=== PATIENT | female | born 1990 | race American Indian/Alaskan Native ===

== ENCOUNTER 2017-12-14 11:02 | Emergency (ER) | payer BC ==
[2017-12-14 11:21] VITALS: BMI 29.2
[2017-12-14 11:58] LABS: BASO % 0.8 % (0.0-2.0); EOS # 0.1 K/uL (0.0-0.7); EOS % 1.7 % (0.0-4.0); HEMOGLOBIN 11.5 g/dL (11.0-16.0); LYMPH # 1.3 K/uL (1.0-4.3); LYMPH % 24.3 % (20.0-40.0); MEAN CELL VOLUME 95.8 fL (81.0-99.0); MEAN CORPUSCULAR HEMOGLOBIN 33.3 pg (27.0-31.0); MEAN CORPUSCULAR HGB CONC 34.7 g/dL (33.0-37.0); MEAN PLATELET VOLUME 10.1 fL (7.2-11.7); MONO # 0.5 K/uL (0.0-0.8); MONO % 10.1 % (0.0-10.0); NEUT # 3.3 K/uL (1.8-7.0); NEUT % 63.1 % (50.0-75.0); RBC 3.46 Mil/uL (3.80-5.20); RED CELL DISTRIBUTION WIDTH 11.6 % (11.5-14.5); WHITE BLOOD COUNT 5.3 K/uL (4.8-10.8)
[2017-12-14 12:04] LABS: HCG,QUALITATIVE URINE POSITIVE (NEGATIVE)
[2017-12-14 12:12] LABS: ALB/GLOB RATIO 1.7 (1.0-2.1); ALBUMIN 4.8 g/dL (3.5-5.0); ALT/SGPT 23 U/L (9-52); AST/SGOT 17 U/L (14-36); BLOOD UREA NITROGEN 9 mg/dL (7-17); GFR AFRICAN-AMERICAN > 60; GFR NON-AFRICAN AMERICAN > 60
[2017-12-14 12:26] LABS: SQUAMOUS EPITHIAL 13 /hpf (0-5); URINE BACTERIA RARE (<OCC); URINE BILIRUBIN NEGATIVE (NEGATIVE); URINE BLOOD 3+ (NEGATIVE); URINE CLARITY Hazy (Clear); URINE COLOR Yellow (YELLOW); URINE GLUCOSE (UA) NORMAL (Normal); URINE LEUKOCYTE ESTERASE NEG Leu/uL (Negative); URINE PROTEIN NEGATIVE (NEGATIVE); URINE UROBILINOGEN NORMAL mg/dL (0.2-1.0)
--- NOTE | 2017-12-14 12:44 | US ---
PROCEDURE: OB Pelvic Ultrasound HISTORY: preg bleeding LMP: 10/18/2017 COMPARISON: None available. FINDINGS: UTERUS: Gestational sac: Single intrauterine gestation. Measures 1.1 cm compatible with estimated gestational age of 5 weeks, 1 day. Yolk sac: Not identified. pole: Not identified. Queenie-gestational hemorrhage: None. Date of delivery (Ultrasound estimated) : Uterus measures 8.3 x 5.0 x 6.0 cm. Normal in size and appearance. CERVIX: Measures 2.4 cm. Long and closed. No cervical abnormality seen. RIGHT OVARY: Measures 3.6 x 2.4 x 3.7 cm. No mass lesion. Normal flow. LEFT OVARY: Measures 3.3 x 2.1 x 2.6 cm. No solid mass. Normal flow. FREE FLUID: None. OTHER FINDINGS: None. IMPRESSION: Single intrauterine gestational sac without yolk sac or pole identified. Findings may represent early normal/ abnormal . Close clinical follow-up with serial pelvic sonography and serum beta HCG levels is recommended.
--- NOTE | 2017-12-14 13:15 | C.PDOC ---
History Of Present Illness 27 year old female who is 5 wks (), presents to the ED for evaluation of vaginal bleeding which began earlier today. Patient states her LMP was during the last week of September and found out she was at the beginning of this month. She has an appointment with her HOOP BENDING MACHINE OPERATOR tomorrow. Patient reports some nausea and urinary frequency and denies fever, back pain, hematuria, vaginal discharge, vomiting, dysuria. Time Seen by Provider: 12/14/17 11:23 Chief Complaint (Nursing): Female Genitourinary History Per: Patient History/Exam Limitations: no limitations Current Symptoms Are (Timing): Still Present Quality Of Discomfort: "Pain" Associated Symptoms: Nausea, Urinary Symptoms (urinary frequency ). denies: Fever, Chills, Vomiting Additional History Per: Patient Abnormal Vaginal Bleeding: Yes : 4 Para: 0 Past Medical History Reviewed: Historical Data, Nursing Documentation, Vital Signs Vital Signs: Last Vital Signs Temp 98.2 F 12/14/17 13:57 Pulse 62 12/14/17 13:57 Resp 16 12/14/17 13:57 BP 100/67 12/14/17 13:57 Pulse Ox 99 12/14/17 13:57 - Medical History PMH: No Chronic Diseases Surgical History: No Surg Hx Family History: States: Unknown Family Hx - Social History Hx Tobacco Use: No Hx Alcohol Use: Yes Hx Substance Use: No - Immunization History Hx Tetanus Toxoid Vaccination: No Hx Influenza Vaccination: No Hx Pneumococcal Vaccination: No Review Of Systems Constitutional: Negative for: Fever, Chills Gastrointestinal: Positive for: Nausea. Negative for: Vomiting Genitourinary: Positive for: Frequency, Vaginal Bleeding Physical Exam - Physical Exam Appears: Non-toxic, No Acute Distress Skin: Normal Color, Warm, Dry Head: Atraumatic, Normacephalic Eye(s): bilateral: Normal Inspection, EOMI Nose: Normal Oral Mucosa: Moist Neck: Supple Chest: Symmetrical, No Deformity, No Tenderness Cardiovascular: Rhythm Regular Respiratory: Normal Breath Sounds, No Rales, No Rhonchi, No Wheezing Gastrointestinal/Abdominal: Soft, No Tenderness, No Guarding, No Rebound Back: No CVA Tenderness, No Vertebral Tenderness Extremity: Normal ROM, Capillary Refill Neurological/Psych: Oriented x3, Normal Speech, Normal Cognition Gait: Steady ED Course And Treatment - Laboratory Results Result Diagrams: 12/14/17 11:51 12/14/17 11:51 O2 Sat by Pulse Oximetry: 100 (on RA) Pulse Ox Interpretation: Normal - CT Scan/US Pelvic US Other Rad Studies (CT/US): Read By Radiologist, Radiology Report Reviewed CT/US Interpretation: Accession No. : [id number]. Patient Name / ID : MEENAKSHI GR / [id number]. Exam Date : 12/14/2017 12:06:54 ( Approved ). Study Comment : Sex / Age : F / 27Y. Creator : Patel Torres MD. Dictator : Patel Torres MD. Survey Research Center Director : Automotive Salesperson : Patel Torres MD. Approver2 : Report Date : 12/14/2017 12:43:25. My Comment : . PROCEDURE: OB Pelvic Ultrasound. HISTORY: preg bleeding. LMP: 10/18/2017. COMPARISON : None available. FINDINGS: UTERUS: Gestational sac: Single intrauterine gestation. Measures 1.1 cm compatible with estimated gestational age of 5 weeks , 1 day. Yolk sac: Not identified. pole: Not identified. Queenie- gestational hemorrhage: None. Date of delivery (Ultrasound estimated) : Uterus measures 8.3 x 5.0 x 6.0 cm. Normal in size and appearance. CERVIX: Measures 2.4 cm. Long and closed. No cervical abnormality seen. RIGHT OVARY: Measures 3.6 x 2.4 x 3.7 cm. No mass lesion. Normal flow. LEFT OVARY: Measures 3.3 x 2.1 x 2.6 cm. No solid mass. Normal flow. FREE FLUID: None. OTHER FINDINGS: None. IMPRESSION: Single intrauterine gestational sac without yolk sac or pole identified. Findings may represent early normal / abnormal . Close clinical follow-up with serial pelvic sonography and serum beta HCG levels is recommended. Progress Note: Bloodwork, urinalysis, Pelvic US ordered and reviewed. Pt was informed of the results and copies given. Instructed to f/u with OB tomorrow as scheduled. Pt verbalizes understanding. Disposition - Disposition Disposition: HOME/ ROUTINE Disposition Time: 13:18 Condition: STABLE Additional Instructions: Follow up with your OB/ER in 2-3 days for repeat evaluation. Your Beta HCG today is 12,000. Instructions: Threatened Miscarriage (DC) Forms: [employer] (Hebrew) - Clinical Impression Clinical Impression: First trimester - PA / KNIFER UP / Resident Statement MD/DO has reviewed & agrees with the documentation as recorded. - Scribe Statement The provider has reviewed the documentation as recorded by the Scribe (Sury Gonsalez) All medical record entries made by the Scribe were at my direction and personally dictated by me. I have reviewed the chart and agree that the record accurately reflects my personal performance of the history, physical exam, medical decision making, and the department course for this patient. I have also personally directed, reviewed, and agree with the discharge instructions and disposition.
[2017-12-14 13:58] VITALS: BP 100/67; PULSE 62; RESP 16; TEMP 98.2
[2017-12-14 16:44] VITALS: O2SAT 100
== END 2017-12-14 13:57 | disposition home or self-care (01) ==
LOC: C.ER 11:02
DX: O26.891 Other specified pregnancy related conditions, first trimester (principal); Z3A.01 Less than 8 weeks gestation of pregnancy

== ENCOUNTER 2018-01-05 00:54 | Emergency (ER) | payer BC ==
[2018-01-05 00:55] VITALS: BMI 29.2
[2018-01-05 01:07] VITALS: RESP 18; TEMP 98.7
[2018-01-05 02:04] LABS: SQUAMOUS EPITHIAL 6 /hpf (0-5); URINE BILIRUBIN NEGATIVE (NEGATIVE); URINE BLOOD 3+ (NEGATIVE); URINE CLARITY Hazy (Clear); URINE COLOR Yellow (YELLOW); URINE GLUCOSE (UA) NORMAL (Normal); URINE HYALINE CAST 0-2 /lpf (0-2); URINE LEUKOCYTE ESTERASE NEG Leu/uL (Negative); URINE PROTEIN 1+ mg/dL (NEGATIVE); URINE UROBILINOGEN NORMAL mg/dL (0.2-1.0)
[2018-01-05 02:05] LABS: BASO % 0.5 % (0.0-2.0); EOS # 0.1 K/uL (0.0-0.7); EOS % 1.3 % (0.0-4.0); LYMPH % 30.2 % (20.0-40.0); MEAN CELL VOLUME 95.2 fL (81.0-99.0); MEAN CORPUSCULAR HEMOGLOBIN 33.3 pg (27.0-31.0); MONO # 0.6 K/uL (0.0-0.8); NEUT # 3.9 K/uL (1.8-7.0); RBC 3.61 Mil/uL (3.80-5.20); RED CELL DISTRIBUTION WIDTH 11.7 % (11.5-14.5); WHITE BLOOD COUNT 6.6 K/uL (4.8-10.8)
--- NOTE | 2018-01-05 02:25 | C.PDOC ---
History Of Present Illness 27 year old female 11 weeks by date presents to the ED c/o vaginal bleeding that started at 23:00 last night. Patient noticed today some clots as well. Patient is also c/o minimal lower back discomfort. Patient denies fever, chills, nausea, vomit, diarrhea, dyruria, hemturia. Pt was seen on 12/14 with similar c/o. Pt is with TOPx 3 Time Seen by Provider: 01/05/18 01:14 Chief Complaint (Nursing): Female Genitourinary History Per: Patient History/Exam Limitations: no limitations Onset/Duration Of Symptoms: Days Current Symptoms Are (Timing): Still Present Quality Of Discomfort: "Pain" Associated Symptoms: Back Pain. denies: Nausea, Vomiting, Diarrhea Alleviating Factors: None Recent travel outside of the [place]: No Additional History Per: Patient Abnormal Vaginal Bleeding: Yes Past Medical History Reviewed: Historical Data, Nursing Documentation, Vital Signs Vital Signs: Last Vital Signs Temp 98.7 F 01/05/18 01:02 Pulse 77 01/05/18 01:02 Resp 18 01/05/18 01:02 BP 123/77 01/05/18 01:02 Pulse Ox 100 01/05/18 05:13 - Medical History PMH: Asthma Surgical History: No Surg Hx Family History: States: Unknown Family Hx - Social History Hx Tobacco Use: No Hx Alcohol Use: No Hx Substance Use: No - Immunization History Hx Tetanus Toxoid Vaccination: No Hx Influenza Vaccination: No Hx Pneumococcal Vaccination: No Review Of Systems Constitutional: Negative for: Fever, Chills Cardiovascular: Negative for: Chest Pain, Palpitations Respiratory: Negative for: Cough, Shortness of Breath Gastrointestinal: Negative for: Nausea, Vomiting, Abdominal Pain Genitourinary: Positive for: Vaginal Discharge, Vaginal Bleeding. Negative for : Dysuria, Hematuria Skin: Negative for: Rash Neurological: Negative for: Weakness, Numbness Physical Exam - Physical Exam Appears: Non-toxic, No Acute Distress Skin: Normal Color, Warm, Dry Head: Atraumatic, Normacephalic Eye(s): bilateral: Normal Inspection Oral Mucosa: Moist Neck: Normal ROM, Supple Chest: Symmetrical Cardiovascular: Rhythm Regular Respiratory: Normal Breath Sounds, No Rales, No Rhonchi, No Wheezing Gastrointestinal/Abdominal: Soft, No Tenderness, No Guarding, No Rebound Back: Paraspinal Tenderness Pelvic: Vaginal Bleeding (minimal), No Cervical Motion Tenderness, No Cervix Open (closed), No Mass Extremity: Normal ROM, No Tenderness, No Swelling Neurological/Psych: Oriented x3, Normal Speech Gait: Steady ED Course And Treatment - Laboratory Results Result Diagrams: 01/05/18 01:56 01/05/18 01:56 O2 Sat by Pulse Oximetry: 100 (ON RA) Pulse Ox Interpretation: Normal - CT Scan/US Pelvic US Other Rad Studies (CT/US): Read By Radiologist, Radiology Report Reviewed CT/US Interpretation: EXAM: US First Trimester, Transabdominal. US , Transvaginal. CLINICAL HISTORY: 27 years old, female; Pain; Other: Vaginal bleeding; Gestational age or lmp: 6w2d; ;. Additional info: Vaginal bleeding, . TECHNIQUE: Real-time transabdominal and transvaginal obstetrical ultrasound of the maternal pelvis and a first. trimester with image documentation. Transvaginal imaging was used for better evaluation. of the fetus and adnexa. COMPARISON: Report 12/14/2017. FINDINGS: Gestation: Gestational sac. No yolk sac. No pole. Mean sac diameter of 1.9 cm, correlating. with gestational age of 6 weeks 2 days. Uterus/cervix: No subchorionic hemorrhage. Closed cervix. Ovaries: Normal ovaries. No adnexal masses. Free fluid: No significant free fluid. IMPRESSION : 1. Findings diagnostic of failure (absence of embryo with heartbeat > or = 2 weeks after a. scan that showed a gestational sac without a yolk sac) based on prior report 12/14/2017. 2. Incidental/non-acute findings are described above. Thank you for allowing us to participate in the care of your patient. Progress Note: Plan: - Labs. - UA. - Pelvic US. Case d/w dr Knapp OB landfill gas collection system operator recommend that as sac is small as seen on US pt may be able to pass sac spontaneously and pt may return to ER if symptoms worsen. Pt remained stable , aware of ED US results and will follw up with OB and return precautions strongly reinforced. Disposition - Disposition Referrals: [facility] [Outside] [facility] [Outside] Disposition: HOME/ ROUTINE Disposition Time: 04:49 Condition: GOOD Additional Instructions: Please follow up with your OB or in clinic Return to ER if moderately heavy bleeding, severe pain, dizziness, or worse Instructions: Threatened Miscarriage (DC) Forms: Work/School/Gym Excuse, [facility] (Hong Konger) - Clinical Impression Clinical Impression: Missed - PA / REFRACTORY REPAIRER / Resident Statement MD/DO has reviewed & agrees with the documentation as recorded. - Scribe Statement The provider has reviewed the documentation as recorded by the Scribe Stu Martinez All medical record entries made by the Scribe were at my direction and personally dictated by me. I have reviewed the chart and agree that the record accurately reflects my personal performance of the history, physical exam, medical decision making, and the department course for this patient. I have also personally directed, reviewed, and agree with the discharge instructions and disposition.
[2018-01-05 02:35] LABS: ALB/GLOB RATIO 1.5 (1.0-2.1); ALBUMIN 5.1 g/dL (3.5-5.0); ALT/SGPT 23 U/L (9-52); AST/SGOT 31 U/L (14-36); BLOOD UREA NITROGEN 8 mg/dL (7-17); CALCIUM 9.6 mg/dl (8.6-10.4); GFR AFRICAN-AMERICAN > 60; GFR NON-AFRICAN AMERICAN > 60
[2018-01-05 05:18] VITALS: BP 118/72; PULSE 82
[2018-01-05 05:21] VITALS: O2SAT 100
--- NOTE | 2018-01-05 10:18 | US ---
Date of service: 01/05/2018 PROCEDURE: ultrasound HISTORY: vaginal bleeding, COMPARISON: 12/14/2017 TECHNIQUE: Standard protocol for this study/examination. FINDINGS: Gestational sac identified. Gestational sac measurement 1.86 cm corresponds to gestational age 6 weeks 2 days. This compares to the prior study 12/14/2017 at which time the gestational sac measured 1.11 cm corresponding to a gestational age of 5 weeks 1 day. No pole or yolk sac noted. Right ovary 2.1 x 3 x 4 cm. Left ovary 1.2 x 2.6 x 2.7 cm. Uterus measures 5.4 x 7.3 x 9 cm. Closed cervix 3.82 cm IMPRESSION: Evidence of intrauterine demise. Details described above. Gestational sac without yolk sac or pole. Unremarkable uterus and adnexa. Concordant results (preliminary interpretation) provided by [facility]. Procedure Completed: 02:34 Preliminary ([facility]) Report: Dictated and Authenticated: 04:28 Final Interpretation: 10:17 January 05, 2018.
== END 2018-01-05 05:18 | disposition home or self-care (01) ==
LOC: SUPCPDRO 00:54 → C.ER 00:54
DX: O02.1 Missed abortion (principal)

== ENCOUNTER 2018-01-08 14:28 | Emergency (ER) | payer BC ==
[2018-01-08 14:29] VITALS: BMI 29.2
[2018-01-08 14:36] VITALS: BP 108/67; PULSE 89; RESP 18; TEMP 98.7; O2SAT 96
--- NOTE | 2018-01-08 16:38 | US ---
PROCEDURE: OB Pelvic Ultrasound HISTORY: /MISCARRIAGE, VAGINAL BLEEDING COMPARISON: 01/05/2018 FINDINGS: UTERUS: Intrauterine gestational sac identified. Gestational sac diameter is 24 mm equivalent to 7 weeks 0 days gestational age. This has increased from prior examination of 01/05/2018 at which time the sac diameter was 19 mm. No pole identified. No yolk sac identified. Low-level echoes are identified within the gestational sac. No detectable cardiac activity. Queenie-gestational hemorrhage: None. Uterus measures 7.8 x 5.0 x 5.4 cm. No mass CERVIX: Long and closed. No cervical abnormality seen. RIGHT OVARY: Measures 3.4 x 2.1 x 2.4 cm. No mass. Normal flow. LEFT OVARY: Measures 3.0 x 1.5 x 2.3 cm. No mass. Normal flow. FREE FLUID: None. OTHER FINDINGS: None. IMPRESSION: Intrauterine gestational sac without identifiable yolk sac, pole or cardiac activity. 24 mm diameter equal to 7 weeks 0 days. Findings likely indicate demise.
--- NOTE | 2018-01-08 17:52 | C.PDOC ---
History Of Present Illness 27 y/o female presents to the ER complaining of vaginal bleeding intermittently since 12/14/17. Patient describes bleeding as the flow of a period and dark brown in color. Patient was seen here and diagnosed with a miscarriage on . She returns today due to persistent bleeding. Patient denies any chest pain , SOB, lightheadedness, abdominal pain, pelvic pain, dysuria, fever. Time Seen by Provider: 01/08/18 15:03 Chief Complaint (Nursing): Female Genitourinary History Per: Patient History/Exam Limitations: no limitations Onset/Duration Of Symptoms: Days Current Symptoms Are (Timing): Still Present Severity: Mild Abnormal Vaginal Bleeding: Yes Past Medical History Reviewed: Historical Data, Nursing Documentation, Vital Signs Vital Signs: Last Vital Signs Temp 98.7 F 01/08/18 14:32 Pulse 89 01/08/18 14:32 Resp 18 01/08/18 14:32 BP 108/67 01/08/18 14:32 Pulse Ox 96 01/08/18 19:21 - Medical History PMH: Asthma Family History: States: No Known Family Hx - Social History Hx Tobacco Use: No (former) Hx Alcohol Use: No Hx Substance Use: No - Immunization History Hx Tetanus Toxoid Vaccination: No Hx Influenza Vaccination: No Hx Pneumococcal Vaccination: No Review Of Systems Constitutional: Negative for: Fever, Chills Cardiovascular: Negative for: Chest Pain, Light Headedness Respiratory: Negative for: Shortness of Breath Gastrointestinal: Negative for: Nausea, Vomiting, Abdominal Pain Genitourinary: Positive for: Vaginal Bleeding. Negative for: Dysuria, Pelvic Pain Skin: Negative for: Rash Physical Exam - Physical Exam Appears: Well, Non-toxic, No Acute Distress Skin: Normal Color, Warm, Dry Head: Normacephalic Eye(s): bilateral: Normal Inspection Oral Mucosa: Moist Neck: Supple Cardiovascular: Rhythm Regular Respiratory: Normal Breath Sounds, No Rales, No Rhonchi, No Wheezing Gastrointestinal/Abdominal: Normal Exam, Bowel Sounds, Soft, No Tenderness Extremity: Bilateral: Atraumatic, Normal ROM Neurological/Psych: Oriented x3 ED Course And Treatment O2 Sat by Pulse Oximetry: 96 (RA) Pulse Ox Interpretation: Normal - CT Scan/US Transvaginal US Other Rad Studies (CT/US): Read By Radiologist, Radiology Report Reviewed CT/US Interpretation: Accession No. : [id number]. Patient Name / ID : MEENAKSHI GR / [id number]. Exam Date : 01/08/2018 15:49:35 ( Approved ). Study Comment : Sex / Age : F / 27Y. Creator : Arpit Moctezuma MD. Dictator : Arpit Moctezuma MD. Order Processing Manager : [employer] : Arpit Moctezuma MD. Approver2 : Report Date : 01/08/2018 16:36:49. My Comment : . PROCEDURE: OB Pelvic Ultrasound. HISTORY: /MISCARRIAGE, VAGINAL BLEEDING. COMPARISON: 01/05/2018. FINDINGS: UTERUS: Intrauterine gestational sac identified. Gestational sac diameter is 24 mm equivalent to 7 weeks 0 days gestational age. This has increased from prior examination of 01/05/2018 at which time the sac diameter was 19 mm. No pole identified. No yolk sac identified. Low-level echoes are identified within the gestational sac. No detectable cardiac activity. Queenie-gestational hemorrhage: None. Uterus measures 7.8 x 5.0 x 5.4 cm. No mass. CERVIX: Long and closed. No cervical abnormality seen. RIGHT OVARY: Measures 3.4 x 2.1 x 2.4 cm. No mass. Normal flow. LEFT OVARY: Measures 3.0 x 1.5 x 2.3 cm. No mass. Normal flow. FREE FLUID: None. OTHER FINDINGS: None. IMPRESSION: Intrauterine gestational sac without identifiable yolk sac, pole or cardiac activity. 24 mm diameter equal to 7 weeks 0 days. Findings likely indicate demise. Progress Note: Beta quant, transvaginal US ordered and reviewed. Beta quant is 1652.50. Ultrasound findings indicate demise. Paged OB on-call, Dr. Penaloza to discuss patient. Reevaluation Time: 17:55 Reassessment Condition: Improved (On reassessment, patient is resting comfortably, in no pain/distress. Rxs for methergine and naprosyn given, and patient instructed to follow up with her supervisor lending activities within 1 week. She understands she should return to ED if symptoms worsen.) - Physician Consult Information Physician Contacted: Nancy Penaloza Outcome Of Conversation: Discussed patient with button sewer hand supervisor lending activities, recommends Methergine 0.25mg PO TID x 3 days, and follow up with her supervisor lending activities/clinic. Disposition Counseled Patient/Family Regarding: Studies Performed, Diagnosis, Need For Followup, Rx Given - Disposition [email or web address] Disposition: HOME/ ROUTINE Disposition Time: 17:55 Condition: STABLE Additional Instructions: FOLLOW UP WITH YOUR FINE GRADE OPERATOR WITHIN 1 WEEK YOU WILL HAVE MORE BLEEDING AND CRAMPS AFTER THE METHERGINE RETURN TO ER IF YOU HAVE ANY CONCERNING SYMPTOMS Prescriptions: Methylergonovine [Methergine] 0.2 mg PO TID #9 tab Naproxen [Naprosyn] 1 tab PO BID PRN #25 tab PRN Reason: Pain Instructions: Miscarriage (DC) Forms: [employer] (Portuguese), Work Excuse Print Language: HUNGARIAN - POA Present On Arrival: None - Clinical Impression Clinical Impression: Missed - Scribe Statement The provider has reviewed the documentation as recorded by the Juliet Bertrand Provider Attestation: All medical record entries made by the Shilohibnish were at my direction and personally dictated by me. I have reviewed the chart and agree that the record accurately reflects my personal performance of the history, physical exam, medical decision making, and the department course for this patient. I have also personally directed, reviewed, and agree with the discharge instructions and disposition.
== END 2018-01-08 18:08 | disposition home or self-care (01) ==
LOC: C.ER 14:28
DX: O02.1 Missed abortion (principal)

== ENCOUNTER 2018-01-12 17:21 | Emergency (ER) | payer BC ==
[2018-01-12 17:22] VITALS: BMI 29.2
[2018-01-12] MEDS ORDERED: Oxycodone/Acetaminophen 5/325 mg Tab PO STA (17:39)
--- NOTE | 2018-01-12 17:47 | C.PDOC ---
History Of Present Illness 27 y/o female presents to ED with c/o increasing vaginal bleeding and low abdominal pain since 2 pm. Pt has been having spotting for the last month. Patient was seen on ED 01/08 and diagnosed with demise and given methergine. Patient states she saw OBGYN yesterday who told her not to take the medication, she will pass it on her own. Today she is passing clots and took Aleve with no improvement prompting ED visit. Denies fever, chills, vomiting, weakness, dizziness, syncope or any other complaints at this time. Time Seen by Provider: 01/12/18 17:33 Chief Complaint (Nursing): Abdominal Pain History Per: Patient History/Exam Limitations: no limitations Onset/Duration Of Symptoms: Days Current Symptoms Are (Timing): Still Present Location Of Pain/Discomfort: Suprapubic Radiation Of Pain To:: None Quality Of Discomfort: Cramping Past Medical History Reviewed: Historical Data, Nursing Documentation, Vital Signs Vital Signs: Last Vital Signs Temp 99.2 F 01/12/18 20:30 Pulse 80 01/12/18 20:30 Resp 18 01/12/18 20:30 BP 104/66 01/12/18 20:30 Pulse Ox 98 01/12/18 20:30 - Medical History PMH: Asthma Surgical History: No Surg Hx Family History: States: No Known Family Hx - Social History Hx Tobacco Use: No (former) Hx Alcohol Use: No Hx Substance Use: No - Immunization History Hx Tetanus Toxoid Vaccination: No Hx Influenza Vaccination: No Hx Pneumococcal Vaccination: No Review Of Systems Constitutional: Negative for: Fever, Chills Gastrointestinal: Positive for: Abdominal Pain. Negative for: Nausea, Vomiting , Diarrhea Genitourinary: Positive for: Vaginal Bleeding. Negative for: Dysuria Musculoskeletal: Negative for: Back Pain Skin: Negative for: Rash Physical Exam - Physical Exam Appears: Non-toxic, In Acute Distress (in painful distress) Skin: Warm, Dry, No Rash Head: Atraumatic, Normacephalic Eye(s): bilateral: Normal Inspection, EOMI Nose: Normal Oral Mucosa: Moist Neck: Normal ROM, Supple Chest: Symmetrical Cardiovascular: Rhythm Regular Respiratory: Normal Breath Sounds, No Accessory Muscle Use, No Rales, No Rhonchi , No Wheezing Gastrointestinal/Abdominal: Soft, Tenderness (Suprapubic), No Guarding, No Rebound Back: No CVA Tenderness, No Paraspinal Tenderness Pelvic: Vaginal Bleeding, No Cervix Open Extremity: Normal ROM Neurological/Psych: Oriented x3, Normal Speech ED Course And Treatment - Laboratory Results Result Diagrams: 01/12/18 17:50 01/12/18 17:50 O2 Sat by Pulse Oximetry: 100 (RA) Pulse Ox Interpretation: Normal Progress Note: Blood work, UA, ordered. Perocet administered. On re-evaluation , pt notes she feels better would like additional medication for pain. Morphine ordered. Case discussed with Dr Avalos who notes no US necassary today and suggested Methergine as written . Pt was instructed to follow up with her OB in 2 days or return to eR if symtpoms persist or worsen. Disposition - Disposition Disposition: HOME/ ROUTINE Disposition Time: 18:51 Condition: STABLE Additional Instructions: Do not fill the last prescription of the Methergine. Fill the new prescription. Follow up with your OBGYN in 1-2 days. Return to ER if symptoms persist or worsen. Prescriptions: Methylergonovine [Methergine] 0.2 mg PO Q6 #4 tab Instructions: Miscarriage (DC) Forms: [employer] Connect (Belgian), Work Excuse - Clinical Impression Clinical Impression: Spontaneous - PA / GLOBAL IMPLEMENTATION MANAGER / Resident Statement MD/DO has reviewed & agrees with the documentation as recorded. - Scribe Statement The provider has reviewed the documentation as recorded by the Shilohibnish Trejo All medical record entries made by the Shilohibnish were at my direction and personally dictated by me. I have reviewed the chart and agree that the record accurately reflects my personal performance of the history, physical exam, medical decision making, and the department course for this patient. I have also personally directed, reviewed, and agree with the discharge instructions and disposition.
[2018-01-12] MEDS ORDERED: Oxycodone/Acetaminophen 5/325 mg Tab ONE (17:53)
[2018-01-12 18:01] LABS: BASO % 0.2 % (0.0-2.0); EOS % 0.2 % (0.0-4.0); HEMOGLOBIN 10.9 g/dL (11.0-16.0); LYMPH % 15.1 % (20.0-40.0); MEAN CELL VOLUME 95.2 fL (81.0-99.0); MEAN CORPUSCULAR HGB CONC 33.7 g/dL (33.0-37.0); MEAN PLATELET VOLUME 9.6 fL (7.2-11.7); MONO # 0.4 K/uL (0.0-0.8); MONO % 5.7 % (0.0-10.0); NEUT # 5.3 K/uL (1.8-7.0); NEUT % 78.8 % (50.0-75.0); RBC 3.39 Mil/uL (3.80-5.20); RED CELL DISTRIBUTION WIDTH 11.8 % (11.5-14.5); WHITE BLOOD COUNT 6.7 K/uL (4.8-10.8)
[2018-01-12 18:36] LABS: ALB/GLOB RATIO 1.7 (1.0-2.1); ALBUMIN 4.4 g/dL (3.5-5.0); ALT/SGPT 24 U/L (9-52); AST/SGOT 14 U/L (14-36); BLOOD UREA NITROGEN 9 mg/dL (7-17); CALCIUM 9.6 mg/dl (8.6-10.4); GFR AFRICAN-AMERICAN > 60; GFR NON-AFRICAN AMERICAN > 60
[2018-01-12 20:31] VITALS: BP 104/66; PULSE 80; RESP 18; TEMP 99.2
[2018-01-13 08:30] VITALS: O2SAT 100
== END 2018-01-12 20:30 | disposition home or self-care (01) ==
LOC: C.ER 17:21
DX: O03.9 Complete or unspecified spontaneous abortion without complication (principal)
CPT/HCPCS: 80053; 84702; 85025; 88305; 96374; 96375; 99285; J2270; J2405

== ENCOUNTER 2018-08-09 22:51 | Emergency (ER) | payer OTHER ==
[2018-08-09 22:51] VITALS: BMI 29.2
--- NOTE | 2018-08-09 23:18 | C.PDOC ---
History Of Present Illness Patient who is 16 weeks presents with nausea and vomiting. She has had previous episodes of hyperemesis, was seen recently and given reglan but continues to vomit and is unable to tolerate PO. Denies fever or chills. Time Seen by Provider: 08/09/18 23:18 Chief Complaint (Nursing): GI Problem History Per: Patient History/Exam Limitations: no limitations Onset/Duration Of Symptoms: Hrs Current Symptoms Are (Timing): Still Present Recent travel outside of the [place]: No Past Medical History Reviewed: Historical Data, Nursing Documentation, Vital Signs Vital Signs: Last Vital Signs Temp 99.5 F 08/09/18 23:00 Pulse 90 08/09/18 23:00 Resp 16 08/09/18 23:00 BP 121/74 08/09/18 23:00 Pulse Ox 98 08/09/18 23:00 - Medical History PMH: Asthma Family History: States: Unknown Family Hx - Social History Hx Tobacco Use: No (former) Hx Alcohol Use: No Hx Substance Use: No - Immunization History Hx Tetanus Toxoid Vaccination: No Hx Influenza Vaccination: No Hx Pneumococcal Vaccination: No Review Of Systems Constitutional: Negative for: Fever, Chills Cardiovascular: Negative for: Chest Pain, Palpitations Respiratory: Negative for: Cough, Shortness of Breath Gastrointestinal: Positive for: Nausea, Vomiting Neurological: Negative for: Weakness, Numbness Physical Exam - Physical Exam Appears: Non-toxic Skin: Warm, Dry Head: Normacephalic Oral Mucosa: Moist Chest: Symmetrical, No Tenderness Cardiovascular: Rhythm Regular Respiratory: No Rales, No Rhonchi, No Wheezing Gastrointestinal/Abdominal: Soft, Tenderness (Mild mid epigastric), No Guarding, No Rebound Back: No CVA Tenderness Neurological/Psych: Oriented x3 ED Course And Treatment - Laboratory Results Result Diagrams: 08/09/18 23:53 08/09/18 23:53 O2 Sat by Pulse Oximetry: 98 (Room air) Pulse Ox Interpretation: Normal Progress Note: Blood work and urinalysis ordered. IV fluids, pepcid, and zofran administered. 5:18 AM Pt tolerating po Reevaluation Time: 05:18 Reassessment Condition: Improved Disposition Counseled Patient/Family Regarding: Studies Performed, Diagnosis, Need For Followup, Rx Given - Disposition Disposition: HOME/ ROUTINE Disposition Time: 23:18 Condition: FAIR Additional Instructions: Please return if symptoms recur. 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 I have reviewed the chart and agree that the record accurately reflects my personal performance of the history, physical exam, medical decision making, and the department course for this patient. I have also personally directed, reviewed, and agree with the discharge instructions and disposition.
[2018-08-09] MEDS ORDERED: Sodium Chloride 0.9% 1,000 ML IV ONE (23:22)
[2018-08-09] MEDS ORDERED: Sodium Chloride 0.9% 1,000 ML ONE (23:35)
[2018-08-09 23:56] LABS: BASO % 0.5 % (0.0-2.0); EOS % 0.6 % (0.0-4.0); HEMOGLOBIN 10.9 g/dL (11.0-16.0); LYMPH # 1.5 K/uL (1.0-4.3); LYMPH % 21.1 % (20.0-40.0); MEAN CELL VOLUME 96.3 fL (81.0-99.0); MEAN CORPUSCULAR HEMOGLOBIN 32.5 pg (27.0-31.0); MEAN CORPUSCULAR HGB CONC 33.8 g/dL (33.0-37.0); MEAN PLATELET VOLUME 9.5 fL (7.2-11.7); MONO # 0.6 K/uL (0.0-0.8); MONO % 8.2 % (0.0-10.0); NEUT # 4.9 K/uL (1.8-7.0); NEUT % 69.6 % (50.0-75.0); NRBC % 0.2 % (0.0-2.0); RBC 3.36 Mil/uL (3.80-5.20); RED CELL DISTRIBUTION WIDTH 11.8 % (11.5-14.5)
[2018-08-10 00:08] LABS: ALB/GLOB RATIO 1.7 (1.0-2.1); ALBUMIN 4.6 g/dL (3.5-5.0); ALT/SGPT 18 U/L (9-52); AST/SGOT 13 U/L (14-36); BLOOD UREA NITROGEN 6 mg/dL (7-17); CALCIUM 9.4 mg/dl (8.6-10.4); GFR NON-AFRICAN AMERICAN > 60; LIPASE 48 U/L (23-300)
[2018-08-10 02:51] LABS: SQUAMOUS EPITHIAL 12 /hpf (0-5); URINE BILIRUBIN NEGATIVE (NEGATIVE); URINE BLOOD NEGATIVE (NEGATIVE); URINE CLARITY Hazy (Clear); URINE COLOR Yellow (YELLOW); URINE GLUCOSE (UA) NORMAL (Normal); URINE LEUKOCYTE ESTERASE NEG Leu/uL (Negative); URINE PROTEIN 1+ mg/dL (NEGATIVE)
[2018-08-10] MEDS ORDERED: Sodium Chloride 0.9% 1,000 ML IV ONE (02:53)
[2018-08-10] MEDS ORDERED: Sodium Chloride 0.9% 1,000 ML ONE (03:29)
[2018-08-10 04:42] VITALS: BP 100/60; PULSE 79; RESP 20; TEMP 98.6
[2018-08-10 05:21] VITALS: O2SAT 98
== END 2018-08-10 05:39 | disposition home or self-care (01) ==
LOC: C.ER 22:51
DX: O21.0 Mild hyperemesis gravidarum (principal); Z3A.16 16 weeks gestation of pregnancy
CPT/HCPCS: 80053; 81001; 83690; 85025; 96361; 96374; 96375; 99285; J2405; J7030